=== PATIENT | male | born 1960 | race Caucasian/White ===

== ENCOUNTER 2017-06-19 00:12 | Inpatient (IN) | payer OTHER ==
[2017-06-19] VITALS (10 sets, daily range): BP systolic 131–189; BP diastolic 73–111
[~2017-06-19] VITALS: Ht 185.4 cm; Wt 146.1 kg
--- NOTE | ~2017-06-19 | EKG ---
[place] [address] [address] [place] [address] ELECTROCARDIOGRAM REPORT Name: MERCED PEÑA Room #: 315-P ADM IN M.R.#: [id number] Admission: 06/19/17 Attend Phys: Bertrand Aguirre MD Discharge: Date of : 62 Report #: [id number] THIS REPORT FOR: //name// [facility] ED Test Date: 2017-06-19 Test Time: 00:21:14 Pat Name: MERCED PEÑA Department: Room: [facility] Gender: M [employer] Operator: RITA : 1960 Requested By: Tamie De Paz Order Number: [id number] MD: Gregory Mars Measurements Intervals [place] Rate: 93 P: 71 VA: 165 QRS: -3 QRSD: 90 T: 70 QT: 384 QTc: 478 Interpretive Statements Sinus rhythm Inferior infarct, old Baseline wander in lead(s) V1 Compared to ECG 03/13/2015 23:16:53 No significant change was found Electronically Signed On 06-19-2017 8:51:48 CDT by Gregory Mars [email or web address] <ELECTRONICALLY SIGNED> By: Gregory Mars MD, [facility] 06/19/17 0851 Gregory Mars MD, [facility] /EPI
[~2017-06-19 00:12] MED LIST: ACCUNEB SO1.25 MG/1 INH; AMLODIPINE BESY10 MG PO; ASPIR 8181 MG PO; ATORVASTATIN CA40 MG PO; AUGMENTIN 875875 MG PO; CARVEDILOL25 MG PO; CLONIDINE0.1 PO; COREG25 MG PO; FLONASE 0.05%50 MCG NASAL; HYDROCODONE-AP1 EAC6 PO; LANTUS100 UNIT/M SUBQ; LASIX 80 MG TAB80 MG PO; NORCO 10-325 T1 EACH PO; NORCO 5-325 TA1 EACH PO; NOVOLOG100 UNIT/1 SUBQ; PLAVIX 75 MG TA75 M1 PO; PROAIR HFA8.5 GM INH; SENNA-S TABLET1 EACH PO; TYLENOL325 MG PO; ZESTRIL40 MG PO; ZPAK PO
[2017-06-19 03:00] LABS: HEMOGLOBIN 14.4 gm/dL (14.0-18.0); MANUAL DIFF NO; RBC 4.29 mil/uL (4.50-6.00); WBC 7.1 thou/uL (4.0-11.0)
[2017-06-19 03:01] LABS: ABSOLUTE NEUTROPHILS 5.2 thou/uL (1.4-8.2); EOSINOPHILS 2.1 % (0.0-3.0); HEMATOCRIT 41.5 % (42.0-52.0); LYMPHOCYTES 14.9 % (24.0-44.0); MCH 33.4 pg (26.0-34.0); MCHC 34.6 % (28.0-37.0); MCV 96.7 fL (80.0-100.0); MONOCYTES 8.1 % (1.0-8.0); PLATELET COUNT 253 thou/uL (150-400); POLYS 73.9 % (36.0-66.0); POTASSIUM 4.6 mmol/L (3.5-5.1); RDW 14.3 % (10.5-14.5); SODIUM 133 mmol/L (136-145)
[2017-06-19 03:02] LABS: ALBUMIN 2.9 g/dL (3.4-5.0); ALKALINE PHOSPHATASE 124 U/L (46-116); ANION GAP 11 mmol/L (7-16); BUN 23 mg/dL (7-18); CHLORIDE 98 mmol/L (98-107); CO2 24 mmol/L (21-32); GLUCOSE 405 mg/dL (74-106); SGOT 9 U/L (15-37); SGPT 14 U/L (30-65); TOTAL BILIRUBIN 0.2 mg/dL (<0.1-1.0)
[2017-06-19 03:03] LABS: URINE COLOR YELLOW; URINE PROTEIN (DIPSTICK) 2+ (Negative); URINE SPECIFIC GRAVITY 1.025 (1.003-1.035)
[2017-06-19 03:03] LABS: TROPONIN-I < 0.04 ng/mL (<0.04-0.07)
[2017-06-19 03:04] LABS: BACTERIA None Seen /HPF (None Seen); CASTS None Seen /LPF (None Seen); CRYSTALS None Seen /LPF (None Seen); SQUAMOUS None Seen /LPF (0-3); URINE BILIRUBIN NEGATIVE (Negative); URINE BLOOD TRACE (Negative); URINE GLUCOSE-RANDOM* 2+ (Negative); URINE KETONES NEGATIVE (Negative); URINE NITRITE NEGATIVE (Negative); URINE RBC None Seen /HPF (0-2); URINE UROBILINOGEN 0.2 E.U./dl (0.2-1.0); URINE WBC None Seen /HPF (0-5)
[2017-06-19 03:11] LABS: DIRECT BILIRUBIN < 0.1 mg/dL (<0.1-0.3)
[2017-06-19] MEDS ORDERED: LASIX 40 MG TAB40 M2 PO (03:24)
[2017-06-19] MEDS ORDERED: PERCOCET 10-321 EACH PO (03:26)
[2017-06-19] MEDS ORDERED: FENTANYL PA25 MCG/HR TRANSDERM (03:28)
[2017-06-19] MEDS ORDERED: NEURONTIN 400400 M1 PO (03:30)
[2017-06-19 03:32] LABS: CHOLESTEROL 259 mg/dL (<200); HDL CHOLESTEROL 28 mg/dL (>40); TC:HDL 9.3 Ratio (Not establshd); TRIGLYCERIDE 416 mg/dL (<150); VLDL 83 mg/dL (<40)
[2017-06-19] MEDS ORDERED: SYMBICORT160 MCG/4. INH (03:36)
[2017-06-19 03:38] LABS: SERUM ASSESSMENT Clear
[2017-06-19] MEDS ORDERED: COLACE100 MG PO (03:38)
[2017-06-19 08:43] LABS: AMP/METHAMP Negative (Negative); BARBITURATES Negative (Negative); BENZODIAZEPINES Negative (Negative); COCAINE Negative (Negative); METHADONE Negative (Negative); OPIATES Negative (Negative); PCP Negative (Negative); THC Negative (Negative)
[2017-06-20 03:07] LABS: GLYCOHEMOGLOBIN (HGB A1C) 10.7 % (4.8-5.6)
[2017-06-20 04:00] LABS: HEMATOCRIT 41.3 % (42.0-52.0); HEMOGLOBIN 13.9 gm/dL (14.0-18.0); MCH 32.8 pg (26.0-34.0); MCHC 33.6 g/dL (28.0-37.0); MCV 97.5 fL (80.0-100.0); RBC 4.23 mil/uL (4.50-6.00); RDW 14.4 % (10.5-14.5); WBC 6.1 thou/uL (4.0-11.0)
[2017-06-20 04:05] VITALS: BP 144/90
[2017-06-20 04:18] LABS: CALCIUM 8.8 mg/dL (8.5-10.1); CREATININE 2.2 mg/dL (0.7-1.3); POTASSIUM 4.4 mmol/L (3.5-5.1)
[2017-06-20 07:45] VITALS: BP 98/50
[2017-06-20 10:51] VITALS: BP 93/39
[2017-06-20 15:45] VITALS: BP 87/38
[2017-06-20 20:00] VITALS: BP 107/62
[2017-06-21 03:38] VITALS: BP 102/49
[2017-06-21 06:21] LABS: HEMOGLOBIN 14.4 gm/dL (14.0-18.0); MCH 32.8 pg (26.0-34.0); MCHC 33.4 g/dL (28.0-37.0); MCV 98.1 fL (80.0-100.0); RBC 4.38 mil/uL (4.50-6.00); RDW 14.1 % (10.5-14.5); WBC 6.7 thou/uL (4.0-11.0)
[2017-06-21 06:31] LABS: CALCIUM 8.9 mg/dL (8.5-10.1); CREATININE 2.4 mg/dL (0.7-1.3); POTASSIUM 4.7 mmol/L (3.5-5.1)
[2017-06-21 08:00] VITALS: BP 102/56
[2017-06-21] MEDS ORDERED: FISH OIL 1,001000 M2 PO (10:47)
[2017-06-21] MEDS ORDERED: NORVASC10 MG PO (10:48)
[2017-06-21] MEDS ORDERED: PERCOCET 10-321 EACH PO (10:49)
[2017-06-21] MEDS ORDERED: LANTUS100 UNIT/M SUBQ (10:49)
[2017-06-21 11:53] VITALS: BP 102/56
== END 2017-06-21 12:15 | disposition home or self-care (01) | DRG 314 ==
LOC: ER 00:12 → 3N 02:12 → EROBS 02:12 → 3N 02:50 → ENTRNSPT 06-21 12:27 → EDTRNSPTSTS 06-21 12:30
PROVIDERS: Emergency Medicine; Hospitalist; Nurse Practitioner Family
DX: T82.118A Breakdown (mechanical) of other cardiac electronic device, initial encounter (principal); G93.40 Encephalopathy, unspecified; N17.9 Acute kidney failure, unspecified; I13.0 Hypertensive heart and chronic kidney disease with heart failure and stage 1 through stage 4 chronic kidney disease, or unspecified chronic kidney disease; Z68.41 Body mass index [BMI] 40.0-44.9, adult; I50.9 Heart failure, unspecified; G47.33 Obstructive sleep apnea (adult) (pediatric); E11.65 Type 2 diabetes mellitus with hyperglycemia; E66.01 Morbid (severe) obesity due to excess calories; G89.29 Other chronic pain; M54.9 Dorsalgia, unspecified; M19.90 Unspecified osteoarthritis, unspecified site; J45.909 Unspecified asthma, uncomplicated; I25.10 Atherosclerotic heart disease of native coronary artery without angina pectoris; E11.22 Type 2 diabetes mellitus with diabetic chronic kidney disease; N18.9 Chronic kidney disease, unspecified; E78.5 Hyperlipidemia, unspecified; Y83.8 Other surgical procedures as the cause of abnormal reaction of the patient, or of later complication, without mention of misadventure at the time of the procedure; I25.2 Old myocardial infarction; Z86.73 Personal history of transient ischemic attack (TIA), and cerebral infarction without residual deficits; Z95.0 Presence of cardiac pacemaker; Z87.01 Personal history of pneumonia (recurrent); Z95.5 Presence of coronary angioplasty implant and graft; Z79.899 Other long term (current) drug therapy; Z79.82 Long term (current) use of aspirin; Z88.8 Allergy status to other drugs, medicaments and biological substances; Z91.02 Food additives allergy status; Y92.89 Other specified places as the place of occurrence of the external cause
CPT/HCPCS: 10096